=== PATIENT | female | born 1990 | race Caucasian/White ===

== ENCOUNTER → 2017-12-29 | Outpatient (CLI) | payer OTHER ==
[~2017-12-29] MED LIST: ANTIBIOTIC; DOXYCYCLINE 10100 M1 PO; GLUMETZA500 M1; PRILOSEC40 MG PO; XANAX 0.25 MG0.25 MG; ZOFRAN PO; ZOLOFT50 MG
== END ==
LOC: M.RAD 16:55
DX: R07.81 Pleurodynia (principal)